=== PATIENT | female | born 1940 | race Caucasian/White ===

== ENCOUNTER 2017-05-02 14:24 | Emergency (ER) | payer OTHER, MEDICAID ==
[2017-05-02 14:35] VITALS: TEMP 98.8
--- NOTE | 2017-05-02 14:58 | EDPHY ---
H & P Stated Complaint: fever/cough Time Seen by Provider: 05/02/17 14:57 HPI/ROS: CHIEF COMPLAINT: Fever, cough HISTORY OF PRESENT ILLNESS: The patient presents the ED with a one-week history of fever and cough. The patient does have a remote history of bronchitis. The patient is visiting from the [place]. The patient does report mild myalgias. She denies vomiting, diarrhea or abdominal pain. The patient denies any additional acute complaints. REVIEW OF SYSTEMS: A comprehensive 10 point review of systems is otherwise negative aside from elements mentioned in the history of present illness. Source: Patient Exam Limitations: No limitations - Personal History Current Tetanus/Diphtheria Vaccine: No - Medical/Surgical History Hx Asthma: No Hx Chronic Respiratory Disease: No Hx Diabetes: No Hx Cardiac Disease: No Hx Renal Disease: No Hx Cirrhosis: No Hx Alcoholism: No Hx HIV/AIDS: No Hx Splenectomy or Spleen Trauma: No Other PMH: esophagitis/gastritis - Social History Smoking Status: Never smoked - Physical Exam Exam: General Appearance: Alert, no distress Eyes: Pupils equal and round no pallor or injection ENT, Mouth: Mucous membranes moist Respiratory: There are no retractions, lungs are clear to auscultation Cardiovascular: Regular rate and rhythm Gastrointestinal: Abdomen is soft and nontender, no masses, bowel sounds normal Neurological: A&O, normal motor function, normal sensory exam, normal cranial nerves Skin: Warm and dry, no rashes Musculoskeletal: Neck is supple nontender Extremities: symmetrical, full range of motion Constitutional: Initial Vital Signs Temperature (C) 37.1 C 05/02/17 14:31 Heart Rate 84 05/02/17 14:31 Respiratory Rate 18 05/02/17 14:31 Blood Pressure 142/78 H 05/02/17 14:31 O2 Sat (%) 94 05/02/17 14:31 O2 Delivery Mode Room Air Allergies/Adverse Reactions: aspirin Allergy (Verified 05/02/17 14:29) diclofenac Allergy (Verified 05/02/17 14:29) levofloxacin [From Levaquin] Allergy (Verified 05/02/17 14:29) Home Medications: Medication Instructions Recorded Albuterol [Ventolin Hfa Inhaler] 2 puffs IH QID PRN #1 mdi 05/02/17 Biseptol 05/02/17 Medical Decision Making - Diagnostics Imaging Results: Chest x-ray PA lateral: Images reviewed by myself, negative for focal infiltrate, pneumothorax or cardiomegaly. ED Course/Re-evaluation: The patient presents to the ED with a one-week history of a bronchitis. She is afebrile. Her chest x-ray demonstrates no evidence of pneumonia. Her vital signs are stable. I have not tested her for influenza as she has had 7 days of symptoms. The patient will be given a prescription for an albuterol inhaler. She is advised to return to the ED for markedly worsening symptoms or other concerns. Differential Diagnosis: Differential diagnosis considered includes asthma, bronchitis, pneumonia Departure - Departure Disposition: Home, Routine, Self-Care Clinical Impression: Acute bronchitis Condition: Good Instructions: Acute Bronchitis (ED) Additional Instructions: 1. Please use albuterol inhaler up to every 4 hr as needed for cough. 2. Her chest x-ray demonstrates no evidence of pneumonia. 3. Tylenol and ibuprofen as needed for pain. 4. Please return to the ED for markedly worsening respiratory symptoms or other concerns. 5. Please follow up with your primary care provider within the next week for recheck as needed.
[2017-05-02 16:05] VITALS: BP 140/88; PULSE 73; RESP 16; O2SAT 91
== END 2017-05-02 16:03 | disposition home or self-care (01) ==
DX: J20.9 Acute bronchitis, unspecified (principal)